=== PATIENT | female | born 1990 | race Hispanic/Latino ===

== ENCOUNTER 2018-02-24 19:07 | Emergency (ER) | payer BC ==
[2018-02-24 19:16] VITALS: BP 114/74; PULSE 90; RESP 16; TEMP 98; O2SAT 100
--- NOTE | 2018-02-24 19:36 | ED PDOC ---
Lower Extremity Pain/Injury Chief Complaint (Provider): left ankle laceration History Per: Patient History/Exam Limitations: no limitations Onset/Duration Of Symptoms: Mins (just prior to arrival) Current Symptoms Are (Timing): Still Present Severity: Moderate Additional Complaint(s): 27 year old female with no past medical history presents to the ED with complaints of a left ankle laceration that occurred just prior to arrival. Patient reports that the ceramic part of a sink in a bar bathroom fell onto her foot and sliced it. Patient denies having any pain. Patient denies hitting her head, loss of consciousness. Patient admit to drinking alcohol. Tetanus is up to date. PMD: in [place]. - Ankle/Foot Description Of Injury: Laceration <Olga Condon - Last Filed: 02/24/18 20:19> <Natalie Steel - Last Filed: 02/24/18 22:50> Time Seen by Provider: 02/24/18 19:22 Chief Complaint (Nursing): Abnormal Skin Integrity Supervising Attending Note - Attestation: I have personally seen and examined this patient.: No I have reviewed all pertinent clinical information, including history, physical exam and plan: Yes <Natalie Steel - Last Filed: 02/24/18 22:50> Past Medical History Reviewed: Historical Data, Nursing Documentation, Vital Signs Vital Signs: Last Vital Signs Temp 98.0 F 02/24/18 19:12 Pulse 90 02/24/18 19:12 Resp 16 02/24/18 19:12 BP 114/74 02/24/18 19:12 Pulse Ox 100 02/24/18 19:12 - Medical History PMH: No Chronic Diseases - Surgical History Other surgeries: ACL left knee 2008. - Family History Family History: States: No Known Family Hx - Living Arrangements Living Arrangements: With Friends/Others - Social History Current smoker - smoking cessation education provided: No Alcohol: Social Drugs: Denies - Immunization History Hx Tetanus Toxoid Vaccination: Yes (november 2017) <Olga Condon - Last Filed: 02/24/18 20:19> Vital Signs: Last Vital Signs Temp 98.0 F 02/24/18 19:12 Pulse 90 02/24/18 19:12 Resp 16 02/24/18 19:12 BP 114/74 02/24/18 19:12 Pulse Ox 100 02/24/18 20:49 <Natalie Steel - Last Filed: 02/24/18 22:50> - Home Medications Home Medications: Ambulatory Orders Medication Instructions Recorded Cephalexin [Keflex] 500 mg PO TID #21 capsule 02/24/18 - Allergies Allergies/Adverse Reactions: Allergies Allergy/AdvReac Type Severity Reaction Status Date / Time No Known Allergies Allergy Verified 02/24/18 19:12 Review of Systems ROS Statement: Except As Marked, All Systems Reviewed And Found Negative Skin: Positive for: Other (left ankle laceration) <NjfeltonOlga alcantar - Last Filed: 02/24/18 20:19> Physical Exam - Reviewed Nursing Documentation Reviewed: Yes Vital Signs Reviewed: Yes - Physical Exam Appears: Positive for: Well, Non-toxic, No Acute Distress Head Exam: Positive for: ATRAUMATIC, NORMOCEPHALIC Skin: Positive for: Normal Color. Negative for: Rash Eye Exam: Positive for: Normal appearance Back: Positive for: Normal Inspection Extremity: Positive for: Other (3 cm laceration overlying the left lateral malleolus with mild active bleeding. neurovascular intact) Neurologic/Psych: Positive for: Alert, Oriented (3x) <TaurusOlga - Last Filed: 02/24/18 20:19> - ECG O2 Sat by Pulse Oximetry: 100 (RA) Pulse Ox Interpretation: Normal - Other Rad Left foot and ankle x-ray X-Ray: Interpreted by Me, Viewed By Me X-Ray Interpretation: no fx, no dis, no radiopaque foreign body <NjadileneOlga - Last Filed: 02/24/18 20:19> Medical Decision Making Medical Decision Makin:22 Initial impression: 27 year old female with a left ankle laceration Initial plan: * XRay ankle left 3 views * XRay foot left 3 views * laceration repair Podiatry resident, Dr. Miles, at bedside completed laceration repair. Patient tolerated procedure well with no complications. Rx keflex given, wound care instructions provided. Patient lives in [place] and will follow up with PMD. She was advised to have sutures removed in 10-14 days. Scribe Attestation: Documented by Stephanie Maria, acting as a scribe for Olga Condon PA-C. Provider Scribe Attestation: All medical record entries made by the Scribe were at my direction and personally dictated by me. I have reviewed the chart and agree that the record accurately reflects my personal performance of the history, physical exam, medical decision making, and the department course for this patient. I have also personally directed, reviewed, and agree with the discharge instructions and disposition. <Olga Condon - Last Filed: 02/24/18 20:19> Disposition - Patient ED Disposition Is Patient to be Admitted: No Counseled Patient/Family Regarding: Studies Performed, Diagnosis, Need For Followup, Rx Given - Disposition Disposition: Routine/Home Disposition Time: 20:19 <Olga Condon - Last Filed: 02/24/18 20:19> <Natalie Steel - Last Filed: 02/24/18 22:50> - Clinical Impression Clinical Impression: Laceration of ankle - Disposition Referrals: Podiatry Clinic [Outside] Condition: STABLE Additional Instructions: Keep wound clean and dry. Take ibuprofen as needed for pain. Take rx meds as directed. Wound chck in 2-3 days. Suture removal 10-14 days. Prescriptions: Cephalexin [Keflex] 500 mg PO TID #21 capsule Instructions: Laceration Repair With Stitches (DC) Forms: [employer] ([place])
[2018-02-24] MEDS ORDERED: Povidone Iodine Topical 10% Sol ONE (20:13)
[2018-02-24] MEDS: Lidocaine 1% w Epi 1:100,000 Inj INJ STA (20:46)
--- NOTE | 2018-02-24 22:25 | CP.PCM.CON ---
History of Present Illness - History of Present Illness History of Present Illness: 27 yo female with no pmhx presents to the ED with a left ankle laceration. She is seen resting comfortably on stretcher with friends present. States that she was in the bathroom a few hours ago and a piece of the sink fell directly on the side of her leg. She instantly noticed it was bleeding. She states that she did not clean the wound nor try to stop the bleeding and proceeded to the ED with her friends. She is visiting from [place] for the weekend. She denies N/V/F/C/SOB/CP and has no other pedal complaints at this time. PMHx: denies PSHx: ACL repair SH: drinks alcohol FH: non contributory All: NKDA Meds: none Past Patient History - Past Social History Alcohol: Social Drugs: Denies - PSYCHIATRIC Hx Substance Use: No - SURGICAL HISTORY Hx Surgeries: Yes Other/Comment: acl left 2008 - ANESTHESIA Hx Anesthesia: No Meds Home Medications: Home Medication List Medication Instructions Recorded Confirmed Type Cephalexin [Keflex] 500 mg PO TID #21 capsule 02/24/18 Rx Allergies/Adverse Reactions: Allergies Allergy/AdvReac Type Severity Reaction Status Date / Time No Known Allergies Allergy Verified 02/24/18 19:12 Physical Exam - Constitutional Appears: Well, Non-toxic, No Acute Distress - Head Exam Head Exam: ATRAUMATIC, NORMOCEPHALIC - Extremities Exam Additional comments: LLE focused: Vasc: DP and PT pulses are 2/4 and palpable; cap refill <3 seconds to all digits; temp gradient warm to cool from proximal to distal; no edema noted about the ankle nor at the laceration site Derm: there is a 4cm incision that is deep into subcutaneous tissue layer distal to the left lateral malleolus; bleeding is noted to the site; no pus or purulent drainage appreciate; periwound area is mildly erythematous; no streaking or cellulitis noted; no clinical signs of infection Neuro: gross and protective sensation are intact Ortho: pain on palpation to lililam laceration and adjacent anatomy; no other gross pathology noted; ankle ROM wnl in all planes - Neurological Exam Neurological exam: Alert, Oriented x3 - Psychiatric Exam Psychiatric exam: Normal Affect, Normal Mood Results - Vital Signs Recent Vital Signs: Last Vital Signs Temp 98.0 F 02/24/18 19:12 Pulse 90 02/24/18 19:12 Resp 16 02/24/18 19:12 BP 114/74 02/24/18 19:12 Pulse Ox 100 02/24/18 20:49 Assessment & Plan - Assessment and Plan (Free Text) Assessment: 27 yo female presents to the ED for left lateral ankle laceration Plan: Patient seen and evaluated Discussed in detail with Dr. Burgos X-rays reviewed - no evidence of bony pathology, minor soft tissue swelling appreciated, no foreign body appreciated Wound was cleaned with 3 L of normal saline mixed with betadine solution at bedside 1% lidocaine with epi was injected proximal to the laceration site prior to suturing Site was cleansed and in a sterile manner 8 4-0 nylon sutures were applied to the lac site in a simple suture technique Patient tolerated the procedure Patient given rx for Keflex Patients tetanus status up to date Patient instructed to keep dressing clean dry and intact until follow up appointment which she will make with doctor in [place] Instructed to avoid consumption of alcohol due to its bleeding effects Patient told she can ambulate but to not use left ankle as sutures can break and cause potential wound dehiscence Thank you for the consult Stable for discharge from podiatry standpoint - Date & Time Date: 02/24/18 Time: 22:37
--- NOTE | 2018-02-25 16:23 | RAD ---
Date of service: 02/24/2018 PROCEDURE: Left Foot Radiographs. HISTORY: trauma COMPARISON: None. FINDINGS: BONES: Normal. No fracture. JOINTS: Normal. SOFT TISSUES: Normal. OTHER FINDINGS: None. IMPRESSION: No evidence of acute fracture or dislocation.
--- NOTE | 2018-02-25 16:23 | RAD ---
Date of service: 02/24/2018 PROCEDURE: Left Ankle Radiographs. HISTORY: trauma COMPARISON: None FINDINGS: BONES: Normal. No fracture. JOINTS: Normal. No osteoarthritis. Ankle mortise maintained. Talar dome intact SOFT TISSUES: Mild soft tissue swelling. OTHER FINDINGS: None. IMPRESSION: No evidence of acute fracture or dislocation.
== END 2018-02-24 20:55 | disposition home or self-care (01) ==
LOC: H.ER 19:07
DX: S91.012A Laceration without foreign body, left ankle, initial encounter (principal); W20.8XXA Other cause of strike by thrown, projected or falling object, initial encounter